=== PATIENT | female | born 1945 | race Native Hawaiian/Other Pacific Islander ===

== ENCOUNTER 2017-01-23 11:12 | Outpatient (CLI) | payer OTHER ==
[~2017-01-23 11:12] MED LIST: ALBU0.5N13 IN; ALLO300T23 PO; ASA LOW STR81 MG PO; BYSTOLIC5 MG PO; LANTUS100 MG/ML SC; LEVO0.1224 PO; LISINOP/HCTZ1 TA2 PO; NOVOLOG SC; NYAMYC100000 MG EX; OMEP40CA PO; PROM25TA52 PO; ROSU10TA PO; WELCHOL625 MG OR
== END 2017-01-23 19:07 | disposition home or self-care (01) ==
LOC: LABW 11:12
DX: R19.7 Diarrhea, unspecified (principal); K63.3 Ulcer of intestine
CPT/HCPCS: 36415; 82784; 83516; 86318

== ENCOUNTER 2017-02-04 14:36 | Outpatient (CLI) | payer OTHER ==
[2017-02-04 15:08] LABS: PLATELET COUNT 235 K/uL (152-353)
[2017-02-04 15:36] LABS: POTASSIUM 4.9 mmol/L (3.6-5.2)
== END 2017-02-04 19:31 | disposition home or self-care (01) ==
LOC: LAB 14:36
PROVIDERS: Nurse Practitioner Family
DX: Z00.00 Encounter for general adult medical examination without abnormal findings (principal); K21.9 Gastro-esophageal reflux disease without esophagitis; I10 Essential (primary) hypertension; G58.8 Other specified mononeuropathies; E11.9 Type 2 diabetes mellitus without complications; K57.30 Diverticulosis of large intestine without perforation or abscess without bleeding; E55.9 Vitamin D deficiency, unspecified
CPT/HCPCS: 80053; 80061; 82306; 82607; 83036; 84436; 84443; 85027

== ENCOUNTER 2017-05-15 13:29 | Outpatient (CLI) | payer OTHER ==
[2017-05-15 14:30] LABS: PLATELET COUNT 241 K/uL (152-353)
[2017-05-15 14:57] LABS: POTASSIUM 4.9 mmol/L (3.6-5.2)
== END 2017-05-15 19:39 | disposition home or self-care (01) ==
LOC: LABW 13:29 → RAD 13:29 → LABW 19:39
PROVIDERS: Internal Medicine Cardiovascular Disease
DX: E78.4 Other hyperlipidemia (principal); Z79.899 Other long term (current) drug therapy; Z51.81 Encounter for therapeutic drug level monitoring; R06.02 Shortness of breath
CPT/HCPCS: 36415; 80048; 80061; 80076; 82550; 84484; 85027; 85651

== ENCOUNTER 2017-05-28 07:28 | Outpatient (CLI) | payer OTHER | END 2017-05-28 09:00 | disposition home or self-care (01) | LOC: NM 07:28 | DX: R07.89 Other chest pain (principal) | CPT/HCPCS: A9500; J2785 ==

== ENCOUNTER 2017-08-08 07:16 | Outpatient (CLI) | payer OTHER ==
[2017-08-08 08:06] LABS: PLATELET COUNT 237 K/uL (152-353)
[2017-08-08 09:13] LABS: POTASSIUM 4.6 mmol/L (3.6-5.2)
== END 2017-08-08 08:20 | disposition home or self-care (01) ==
LOC: LABW 07:16
PROVIDERS: Nurse Practitioner
DX: E11.9 Type 2 diabetes mellitus without complications (principal); M10.9 Gout, unspecified; E78.00 Pure hypercholesterolemia, unspecified; E55.9 Vitamin D deficiency, unspecified; Z80.8 Family history of malignant neoplasm of other organs or systems
CPT/HCPCS: 36415; 80053; 80061; 82043; 82306; 82570; 82607; 83036; 84443; 84550; 85027; 86304

== ENCOUNTER 2017-08-23 12:51 | Outpatient (CLI) | payer OTHER | END 2017-08-23 19:00 | disposition home or self-care (01) | LOC: MAMMO 12:51 | DX: Z12.31 Encounter for screening mammogram for malignant neoplasm of breast (principal) ==

== ENCOUNTER 2018-04-08 09:04 | Outpatient (CLI) | payer OTHER | END 2018-04-08 21:51 | disposition home or self-care (01) | LOC: US 09:04 | DX: R10.30 Lower abdominal pain, unspecified (principal) ==

== ENCOUNTER 2018-07-14 07:39 | Outpatient (CLI) | payer OTHER | END 2018-07-14 19:51 | disposition home or self-care (01) | LOC: LABW 07:39 | DX: R19.7 Diarrhea, unspecified (principal) | CPT/HCPCS: 83630; 87324; 87328; 87329; 87449 ==

== ENCOUNTER 2018-07-29 14:50 | Outpatient (CLI) | payer OTHER | END 2018-07-29 22:35 | disposition home or self-care (01) | LOC: US 14:50 | DX: M54.2 Cervicalgia (principal); Z12.31 Encounter for screening mammogram for malignant neoplasm of breast ==

== ENCOUNTER 2018-08-08 09:10 | Outpatient (CLI) | payer OTHER ==
[2018-08-08 10:13] LABS: PLATELET COUNT 193 K/uL (152-353)
== END 2018-08-08 19:25 | disposition home or self-care (01) ==
LOC: LABW 09:10
PROVIDERS: Nurse Practitioner Family
DX: R10.9 Unspecified abdominal pain (principal); R19.7 Diarrhea, unspecified
CPT/HCPCS: 36415; 80053; 82150; 82784; 82785; 83516; 83690; 84443; 85027; 86140

== ENCOUNTER 2018-08-27 10:47 | Outpatient (CLI) | payer OTHER | END 2018-08-27 19:56 | disposition home or self-care (01) | LOC: MAMMO 10:47 | DX: M54.2 Cervicalgia (principal); Z12.31 Encounter for screening mammogram for malignant neoplasm of breast; Z78.0 Asymptomatic menopausal state ==

== ENCOUNTER 2018-10-23 15:23 | Outpatient (CLI) | payer OTHER | END 2018-10-23 19:14 | disposition home or self-care (01) | LOC: LABW 15:23 | DX: A04.71 Enterocolitis due to Clostridium difficile, recurrent (principal) | CPT/HCPCS: 87324; 87449 ==

== ENCOUNTER 2019-08-19 10:53 | Outpatient (CLI) | payer OTHER | END 2019-08-19 21:38 | disposition home or self-care (01) | LOC: MAMMO 10:53 | DX: N64.59 Other signs and symptoms in breast (principal) | CPT/HCPCS: G0279 ==

== ENCOUNTER 2020-06-21 14:58 | Outpatient (CLI) | payer OTHER ==
[2020-06-21 15:34] LABS: PLATELET COUNT 204 K/uL (152-353)
[2020-06-21 16:01] LABS: POTASSIUM 4.4 mmol/L (3.6-5.2)
== END 2020-06-21 19:16 | disposition home or self-care (01) ==
LOC: LAB 14:58
PROVIDERS: Internal Medicine
DX: E11.21 Type 2 diabetes mellitus with diabetic nephropathy (principal); I10 Essential (primary) hypertension; E03.8 Other specified hypothyroidism; E78.00 Pure hypercholesterolemia, unspecified; M10.9 Gout, unspecified; E55.9 Vitamin D deficiency, unspecified
CPT/HCPCS: 80053; 80061; 82652; 83036; 84443; 85027

== ENCOUNTER 2021-11-12 22:32 | Emergency (ER) | payer OTHER ==
[~2021-11-12] VITALS: Ht 160 cm; Wt 99.8 kg
[2021-11-12 22:56] LABS: PLATELET COUNT 135 K/uL (152-353)
[2021-11-12 23:03] LABS: POTASSIUM 3.4 mmol/L (3.6-5.2)
[2021-11-13 03:30] VITALS: BP 156/67; TEMP 97.1
== END 2021-11-13 03:41 | disposition home or self-care (01) ==
LOC: ED 22:32
PROVIDERS: Emergency Medicine Emergency Medical Services
DX: E11.649 Type 2 diabetes mellitus with hypoglycemia without coma (principal); Z79.4 Long term (current) use of insulin
CPT/HCPCS: 36415; 80053; 82948; 85027; 96365; 96366; 96375; 99284; J2930; J7060

== ENCOUNTER 2022-12-20 10:45 | Outpatient (CLI) | payer OTHER | END 2022-12-20 17:00 | disposition home or self-care (01) | LOC: MAMMO 10:45 | PROVIDERS: ATTEND Physician Assistant | DX: Z12.31 Encounter for screening mammogram for malignant neoplasm of breast (principal) ==